=== PATIENT | male | born 1965 | race Caucasian/White ===

== ENCOUNTER 2016-08-18 16:45 | Emergency (ER) | payer MEDICARE, OTHER ==
[~2016-08-18 16:45] MED LIST: BUMETANIDE2 MG PO; COLACE100 MG PO; COUMADIN3 MG PO; COZAAR50 MG PO; DULERA 200 MCG8.8 GM IH; ELIQUIS5 MG PO; HUMULIN 70100 UNIT/2 SQ; IPRAT-ALBUT 0.5-3 ML NEB; KLONOPIN0.5 MG PO; LANOXIN125 MCG PO; LEVAQUIN750 MG PO; LIPITOR80 MG PO; NEURONTIN800 MG PO; NOVOLOG MI100 UNIT/2 SQ; OMEPRAZOLE40 MG PO; PERCOCET 10-321 EACH PO; PERCOCET 10/3251 TAB PO; PREDNISONE10 MG PO; PREDNISONE20 MG PO; PRILOSEC40 MG PO; PROZAC20 MG PO; PROZAC40 MG PO; SKELAXIN800 MG PO; SPIRIVA18 MCG IH; SYNTHROID25 MCG PO; TOPROL XL200 MG PO; TRAZODONE HCL100 MG PO; VENTOLIN HFA8 GM IH
== END 2016-08-18 20:06 | disposition home or self-care (01) ==
LOC: ER 16:45
DX: I11.0 Hypertensive heart disease with heart failure (principal); I50.9 Heart failure, unspecified; J44.9 Chronic obstructive pulmonary disease, unspecified; F32.9 Major depressive disorder, single episode, unspecified; F41.9 Anxiety disorder, unspecified; E11.9 Type 2 diabetes mellitus without complications; I48.91 Unspecified atrial fibrillation; E66.01 Morbid (severe) obesity due to excess calories; E78.00 Pure hypercholesterolemia, unspecified; Z79.899 Other long term (current) drug therapy; Z88.5 Allergy status to narcotic agent; Z88.8 Allergy status to other drugs, medicaments and biological substances; Z99.81 Dependence on supplemental oxygen; Z95.810 Presence of automatic (implantable) cardiac defibrillator; Z87.891 Personal history of nicotine dependence
CPT/HCPCS: 36415; 96374; 96375; J1940